=== PATIENT | female | born 1955 | race Caucasian/White ===

== ENCOUNTER 2017-02-23 14:12 | Inpatient (IN) | payer BC ==
[~2017-02-23] VITALS: Ht 167.6 cm; Wt 59.0 kg
[2017-02-23] MEDS ORDERED: DEXTROSE 50% SYRINGE 50 ML IV ONE (14:15)
[2017-02-23] MEDS ORDERED: DEXTROSE (50%) 50ML SYRG IV ONE ×2 (14:30→20:00)
[2017-02-23 14:57] LABS: Hematocrit 40.7 % (36.0-46.0); Hemoglobin 13.6 g/dL (12.2-16.2); Mean Corpuscular Hemoglobin 33.4 pg (28.0-32.0); Mean Corpuscular Hgb Conc. 33.4 g/dL (32.0-36.0); Mean Platelet Volume 8.2 fL (7.4-10.4); Platelet Count (auto) 232 10^3/uL (140-450); Red Cell Distribution Width 14.4 % (11.6-16.0); SUSPECT VIEW TRANSMISSION; White Blood Cell 12.1 10^3/uL (4.4-10.8)
[2017-02-23 15:17] LABS: Albumin 3.3 g/dL (3.4-5.0); Anion Gap 15 (5-15); Aspartate Aminotransferase 505 U/L (15-37); BUN/Creatinine Ratio 16.9; Blood Urea Nitrogen 45 mg/dL (7-18); Calcium 6.8 mg/dL (8.5-10.1); Carbon Dioxide 20 mmol/L (21-32); Chloride 100 mmol/L (98-107); GFR African American 23 mL/min; GFR Non-African American 19 mL/min; Glucose 183 mg/dL (74-106); Magnesium 1.4 mg/dL (1.6-2.6); Sodium 135 mmol/L (136-145)
[2017-02-23 15:27] LABS: Metamyelocytes % 0; Myelocytes % 0; Promyelocytes % 0; Reactive Lymphocytes 0
[2017-02-23 15:30] LABS: Alkaline Phosphatase 267 U/L (45-117); Bilirubin, Total 2.4 mg/dL (0.2-1.0); Total Protein 6.9 g/dL (6.4-8.2)
[2017-02-23 15:34] LABS: Salicylate 3.1 mg/dL (2.8-20.0)
[2017-02-23 15:35] LABS: Acetaminophen < 2.0 ug/mL (10-30)
[2017-02-23 15:54] LABS: Large Platelets FEW; Platelet Estimate Adequa; Tear Drop Cells FEW
[2017-02-23 16:33] LABS: Lactic Acid w/Reflex 4.2 mmol/L (0.4-2.0)
[2017-02-23 16:35] LABS: REFLEX LACTIC ACID YES OR NO YES
[2017-02-23 16:36] LABS: Urine Bilirubin Negative (Negative); Urine Blood Negative /uL (Negative); Urine Color Yellow (Yellow); Urine Glucose Normal (Normal); Urine Ketone TRACE (Negative); Urine Nitrite Negative (Negative); Urine RBC <1 /hpf (0 - 4); Urine Urobilinogen Normal (Negative); Urine pH 6.5 (5.0-8.0)
[2017-02-23] MEDS ORDERED: LORazepam 2MG/ML-1ML VIAL IV ONE ×2 (17:00→21:00)
[2017-02-23] MEDS ORDERED: SODIUM CHLORIDE 0.9% 1,000 ML IV ONE ×2 (18:15→21:00)
[2017-02-23 22:26] LABS: Lactic Acid w/Reflex 2.6 mmol/L (0.4-2.0)
[2017-02-23 22:28] LABS: REFLEX LACTIC ACID YES OR NO NO
[2017-02-24] MEDS ORDERED: SODIUM CHLORIDE 0.9% 1,000 ML IV ONE ×2 (00:03→02:00)
[2017-02-24] MEDS ORDERED: SODIUM CHLORIDE 0.9% 250 ML IV ONE (00:03)
[2017-02-24] MEDS ORDERED: metroNIDAZOLE 500MG/100ML 100 ML IV ONE ×2 (00:15→06:00)
[2017-02-24] MEDS ORDERED: PIPERACILLIN-TAZOB 3.375GM 100 ML IV ONE ×2 (00:15→10:00)
[2017-02-24] MEDS ORDERED: MAGNESIUM SULFATE 1GM/100ML 100 ML IV ONE (04:30)
[2017-02-24] MEDS ORDERED: DEXTROSE 10% 1,000 ML IV ONE ×2 (04:51→05:45)
[2017-02-24] MEDS ORDERED: SODIUM CHLORIDE 0.9% 1,000 ML IV SCH (04:59)
[2017-02-24] MEDS ORDERED: NITROGLYCERIN 0.4 MG SL TAB SL PRN (05:00)
[2017-02-24] MEDS ORDERED: ACETAMINOPHEN 325 MG TAB PO PRN (05:00)
[2017-02-24] MEDS ORDERED: ONDANSETRON HCL 4 MG/2 ML VIAL IV PRN (05:00)
[2017-02-24] MEDS ORDERED: MORPHINE SULF INJ 2 MG/ML SYRINGE 1ML IV PRN ×2 (05:00)
[2017-02-24] MEDS ORDERED: TEMAZEPAM 15 MG CAP PO PRN (05:00)
[2017-02-24] MEDS ORDERED: SODIUM BICARBONATE 8.4% INJ 50ML SYRINGE ONE ×2 (05:05→06:19)
[2017-02-24] MEDS ORDERED: SODIUM BICARBONATE 8.4 % INJ 50ML VIAL IV ONE ×2 (05:06→06:45)
[2017-02-24] MEDS ORDERED: NOREPINEPHRINE BITARTRATE 250 ML IV ONE (06:25)
[2017-02-24] MEDS ORDERED: NOREPINEPHRINE BITARTRATE 250 ML IV SCH (06:30)
[2017-02-24] MEDS ORDERED: DOPamine 1600MCG/ML 250 ML IV SCH (06:30)
[2017-02-24] MEDS ORDERED: PROPOFOL 10 MG/ML 20 ML IV ONE (06:30)
[2017-02-24] MEDS ORDERED: SODIUM CHLORIDE 0.9% 5,000 ML IV ONE (06:45)
[2017-02-24] MEDS ORDERED: SODIUM CHLORIDE 0.9% 2,000 ML IV ONE (06:45)
[2017-02-24] MEDS ORDERED: PANTOPRAZOLE SODIUM 80 MG in SODIUM CHL 0.9% 60 ML IV SCH (07:00)
[2017-02-24] MEDS ORDERED: PHENYLEPHRINE INJ 20 MG in SODIUM CHL 0.9% 250 ML IV SCH (07:30)
[2017-02-24 08:23] LABS: Lactic Acid w/Reflex 11.9 mmol/L (0.4-2.0)
[2017-02-24 08:29] LABS: Albumin 1.5 g/dL (3.4-5.0); Alkaline Phosphatase 177 U/L (45-117); Anion Gap 24 (5-15); Aspartate Aminotransferase 2748 U/L (15-37); Bilirubin, Total 1.6 mg/dL (0.2-1.0); Blood Urea Nitrogen 54 mg/dL (7-18); Carbon Dioxide 16 mmol/L (21-32); Chloride 113 mmol/L (98-107); GFR African American 20 mL/min; GFR Non-African American 17 mL/min; Glucose 139 mg/dL (74-106); Sodium 153 mmol/L (136-145); Total Protein 3.4 g/dL (6.4-8.2)
[2017-02-24 08:31] LABS: REFLEX LACTIC ACID YES OR NO YES
[2017-02-24 08:45] VITALS: BP 78/27
[2017-02-24] MEDS ORDERED: EPINEPHrine HCL 1 MG/10 ML SYRG IV ONE ×2 (08:51→09:57)
[2017-02-24] MEDS ORDERED: DEXTROSE (50%) 50ML SYRG IV ONE (08:51)
[2017-02-24] MEDS ORDERED: DOPamine 1600MCG/ML 400MG/250ML PREMIX BAG IV ONE (08:51)
[2017-02-24] MEDS ORDERED: SODIUM BICARBONATE 8.4% INJ 50ML SYRINGE IV ONE (08:51)
[2017-02-24 09:31] LABS: Basophils % (auto) 0.1 % (0.0-2.0); Eosinophils % (auto) 0.2 % (0.0-7.0); Lymphocytes % (auto) 12.8 % (10.0-50.0); Monocytes % (auto) 10.4 % (0.0-12.0); Neutrophils # (auto) 2.3 uL; Neutrophils % (auto) 76.5 % (37.0-80.0); Nucleated Red Blood Cells % 3.1 %
[2017-02-24 09:32] LABS: Basophils # (auto) 0 uL; Eosinophils # (auto) 0 uL; Hematocrit 26.3 % (36.0-46.0); Hemoglobin 8.5 g/dL (12.2-16.2); Mean Corpuscular Hemoglobin 34.1 pg (28.0-32.0); Mean Corpuscular Hgb Conc. 32.4 g/dL (32.0-36.0); Mean Corpuscular Volume 105.1 fL (80.0-100.0); Monocytes # (auto) 0.3 uL; Red Cell Distribution Width 15.2 % (11.6-16.0)
[2017-02-24 09:33] LABS: Lymphocytes # (auto) 0.4 uL; Mean Platelet Volume 9.3 fL (7.4-10.4); Platelet Count (auto) 136 10^3/uL (140-450)
[2017-02-24] MEDS ORDERED: FAMOTIDINE 20 MG TAB PO SCH (10:00)
[2017-02-24] MEDS ORDERED: ENOXAPARIN SOD 30 MG/0.3 ML SYRINGE SC SCH (10:00)
[2017-02-24 10:28] LABS: Calcium < 5.0 mg/dL (8.5-10.1)
[2017-02-24 13:36] LABS: Burr Cells MODERATE; Macrocytosis Slight; Platelet Estimate Decreased
== END 2017-02-24 12:38 | disposition expired | DRG 310 ==
LOC: EDBD 14:12 → ER 14:12 → TELE 14:13
PROVIDERS: ADMIT Emergency Medicine; ATTEND Internal Medicine
PROC: 06HM33Z Insertion of Infusion Device into Right Femoral Vein, Percutaneous Approach (ICD-10-PCS; 2017-02-23)
PROC: 5A1935Z Respiratory Ventilation, Less than 24 Consecutive Hours (ICD-10-PCS; principal; 2017-02-24)
PROC: 0BH17EZ Insertion of Endotracheal Airway into Trachea, Via Natural or Artificial Opening (ICD-10-PCS; 2017-02-24)
DX: I48.91 Unspecified atrial fibrillation (principal); R41.82 Altered mental status, unspecified; I46.9 Cardiac arrest, cause unspecified; R33.9 Retention of urine, unspecified; R78.89 Finding of other specified substances, not normally found in blood; Z85.41 Personal history of malignant neoplasm of cervix uteri
CPT/HCPCS: 31500; 36415; 36556; 36600; 51702; 70450; 71010; 80053; 80320; 80329; 81001; 82550; 82805; 82962; 83036; 83605; 83735; 84484; 85007; 85025; 85027; 87040; 93005; 94002; 96361; 96365; 96366; 96367; 96375; 96376; 99291; C9113; G0434; J2543; J3490